=== PATIENT | male | born 1995 | race American Indian/Alaskan Native ===

== ENCOUNTER 2019-10-18 08:01 | Emergency (ER) | payer SELFPAY ==
[2019-10-18 08:09] VITALS: BP 138/75
== END 2019-10-18 09:18 | disposition left against medical advice (07) ==
LOC: ED 08:01
DX: R21 Rash and other nonspecific skin eruption (principal); Z53.21 Procedure and treatment not carried out due to patient leaving prior to being seen by health care provider